=== PATIENT | male | born 1970 | race American Indian/Alaskan Native ===

== ENCOUNTER 2020-02-28 14:19 | Emergency (ER) | payer OTHER ==
[2020-02-28] MEDS ORDERED: IBUPROFEN 800 MG TAB PO ONE (18:55)
--- NOTE | 2020-02-28 19:01 | Emergency Department Report ---
ED General Adult HPI - General Chief complaint: Sore Throat Stated complaint: SORE THROAT,FEVER Time Seen by Provider: 02/28/20 18:23 Source: patient Mode of arrival: Ambulatory Limitations: No Limitations - History of Present Illness Initial comments: 49-year-old -Greek male patient presents with complaints of sudden onset of sore throat and painful swallowing starting this morning. He rates his current pain as a 10/10 in severity and describes it as a aching pain. He denies any drooling or intolerance to liquids, fever/chills/sweats, cough, rash, chest pain, or shortness of breath. Patient states history of tonsillectomy about 10 years ago due to recurrent strep infections. He states this pain feels very similar. -: Sudden - Related Data Previous Rx's Medication Instructions Recorded Last Taken Type Amoxicillin [Trimox CAP] 500 mg PO BID 10 Days #20 capsule 02/28/20 Unknown Rx Ibuprofen [Motrin 800 MG tab] 800 mg PO Q8HR PRN #21 tablet 02/28/20 Unknown Rx Allergies Allergy/AdvReac Type Severity Reaction Status Date / Time erythromycin base Allergy Hives Verified 02/28/20 14:42 ED Review of Systems ROS: Stated complaint: SORE THROAT,FEVER Other details as noted in HPI Constitutional: denies: chills, diaphoresis, fever, malaise, weakness ENT: throat pain. denies: dental pain Respiratory: denies: cough, shortness of breath Cardiovascular: denies: chest pain Gastrointestinal: denies: nausea, vomiting Skin: denies: rash Neurological: denies: headache Hematological/Lymphatic: swollen glands ED Past Medical Hx - Past Medical History Previous Medical History?: No - Surgical History Past Surgical History?: Yes Additional Surgical History: eye, nose, throat. - Medications Home Medications: Home Medications Medication Instructions Recorded Confirmed Last Taken Type Amoxicillin [Trimox CAP] 500 mg PO BID 10 Days #20 capsule 02/28/20 Unknown Rx Ibuprofen [Motrin 800 MG tab] 800 mg PO Q8HR PRN #21 tablet 02/28/20 Unknown Rx ED Physical Exam - General Limitations: No Limitations General appearance: alert, in no apparent distress, other (No tripoding noted) - Head Head exam: Present: atraumatic, normocephalic - Eye Eye exam: Present: normal appearance - ENT ENT exam: Present: mucous membranes moist - Expanded ENT Exam Expanded Mouth exam: Present: other (Erythema and mild swelling noted of uvula; uvula is midline). Absent: drooling, trismus, muffled voice Throat exam: Positive: other (Tonsils are surgically absent; posterior pharyngeal erythema noted without purulent drainage) - Neck Neck exam: Present: full ROM. Absent: lymphadenopathy (Tenderness noted to the anterior cervical lymph nodes without swelling) - Respiratory Respiratory exam: Present: normal lung sounds bilaterally. Absent: respiratory distress - Cardiovascular Cardiovascular Exam: Present: regular rate - Extremities Exam Extremities exam: Present: normal inspection - Back Exam Back exam: Present: normal inspection - Neurological Exam Neurological exam: Present: alert, oriented X3 - Psychiatric Psychiatric exam: Present: normal affect, normal mood - Skin Skin exam: Present: warm, dry, intact, normal color. Absent: rash, cyanosis, diaphoretic ED Course Vital Signs 02/28/20 14:43 Temperature 98.0 F Pulse Rate 86 Respiratory 18 Rate Blood Pressure 149/66 [Right] O2 Sat by Pulse 96 Oximetry ED Medical Decision Making - Medical Decision Making Patient here with acute throat pain. History of recurrent strep and tonsillectomy. Mild swelling of the uvula with erythema noted on exam. No trismus or drooling noted. Patient is able to swallow water without difficulty. Will treat for pharyngitis and uvulitis with Amoxil. Patient is afebrile and non-tachycardic. He is well-appearing and stable for discharge home. Recommend follow-up primary care provider in 3 days. Strict return precautions were discussed in great detail with patient who verbalizes understanding peer Critical care attestation.: If time is entered above; I have spent that time in minutes in the direct care of this critically ill patient, excluding procedure time. ED Disposition Clinical Impression: Acute bacterial pharyngitis Disposition: DC-01 TO HOME OR SELFCARE Is pt being admited?: No Condition: Stable Instructions: Strep Throat (ED) Prescriptions: Ibuprofen [Motrin 800 MG tab] 800 mg PO Q8HR PRN #21 tablet PRN Reason: pain Amoxicillin [Trimox CAP] 500 mg PO BID 10 Days #20 capsule Referrals: PRIMARY CARE, [Primary Care Provider] - 3-5 Days
[2020-02-28 19:39] VITALS: BP 146/82
== END 2020-02-28 19:38 | disposition home or self-care (01) ==
LOC: ED 14:19
DX: J02.8 Acute pharyngitis due to other specified organisms (principal); B96.89 Other specified bacterial agents as the cause of diseases classified elsewhere; Z79.899 Other long term (current) drug therapy
CPT/HCPCS: 99282